=== PATIENT | female | born 1950 | race Caucasian/White ===

== ENCOUNTER 2020-03-25 11:37 | Inpatient (IN) | payer OTHER ==
[~2020-03-25] VITALS: Ht 152.4 cm; Wt 62.3 kg
--- NOTE | ~2020-03-25 | EKG ---
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
[2020-03-25 11:37] VITALS: BP 112/76
[2020-03-25 11:52] LABS: ABSOLUTE NEUTROPHILS 3.6 thou/uL (1.4-8.2); EOSINOPHILS 1.2 % (0.0-3.0); HEMATOCRIT 38.6 % (37.0-47.0); HEMOGLOBIN 13.2 gm/dL (12.0-15.0); LYMPHOCYTES 28.3 % (24.0-44.0); MCH 32.3 pg (26.0-34.0); MCHC 34.1 g/dL (28.0-37.0); MCV 94.8 fL (80.0-100.0); MONOCYTES 8.8 % (1.0-8.0); PLATELET COUNT 256 thou/uL (150-400); POLYS 60.7 % (36.0-66.0); RBC 4.08 mil/uL (4.20-5.00); RDW 13.6 % (10.5-14.5); WBC 5.9 thou/uL (4.0-11.0)
[2020-03-25 12:04] LABS: ANION GAP 11 mmol/L (7-16); BUN 16 mg/dL (7-18); CALCIUM 9.7 mg/dL (8.5-10.1); CHLORIDE 100 mmol/L (98-107); CO2 24 mmol/L (21-32); CREATININE 0.8 mg/dL (0.6-1.0); GLUCOSE 95 mg/dL (74-106); SODIUM 135 mmol/L (136-145)
[2020-03-25 12:14] LABS: ALBUMIN 4.1 g/dL (3.4-5.0); SGOT 19 U/L (15-37); SGPT 23 U/L (30-65); TOTAL BILIRUBIN 0.5 mg/dL (0.2-1.0); TROPONIN-I <0.06 ng/mL (<0.06)
[2020-03-25 15:58] VITALS: BP 130/72
[2020-03-25] MEDS ORDERED: ADVAIR 250-501 EACH INH (16:08)
[2020-03-25] MEDS ORDERED: FEOSOL325 M1 PO (16:09)
[2020-03-25] MEDS ORDERED: LIPITOR 20 MG T20 M1 PO (16:09)
[2020-03-25] MEDS ORDERED: NORVASC5 M1 PO (16:09)
[2020-03-25] MEDS ORDERED: LEVO-T100 MCG PO (16:09)
[2020-03-25] MEDS ORDERED: PAROXETINE HCL10 MG PO (16:10)
[2020-03-25] MEDS ORDERED: VENTOLIN HFA 1818 GM INH (16:10)
[2020-03-25] MEDS ORDERED: MYRBETRIQ50 MG PO (16:10)
[2020-03-25] MEDS ORDERED: VIBERZI100 MG PO (16:10)
[2020-03-25] MEDS ORDERED: OXYBUTYNIN 5 MG5 M2 PO (16:10)
[2020-03-25 16:22] VITALS: BP 119/83
[2020-03-25 17:00] VITALS: BP 132/73
--- NOTE | 2020-03-25 17:15 | NUR ---
ASSUMED CARE OF PT FROM ED AT 1700. A&0X4, AMB STEADY, IS NOT IMPULSIVE. C/O OF SAME PAIN SHE'S HAD FOR A WEEK, CHEST PAIN INTERMITTENTLY AND ABD PAIN. HERNIA FOUND W/DIAGNOSTICS. DAUGHTER AT BEDSIDE. SEE SEPARATE INTERVENTIONS FOR ASSESSMENTS. CARDIAC MONITORED. COMPUTER NOT WORKING IN THE ROOM AND ONE ON WHEELS NOWHERE TO BE FOUND AT THIS TIME. WILL CONTINUE TO MONITOR. HAS MS AND HYDROCODONE FOR PAIN.
[2020-03-25 18:54] VITALS: BP 108/64
[2020-03-25 20:00] VITALS: BP 108/64
[2020-03-26 05:12] LABS: CALCIUM 8.6 mg/dL (8.5-10.1); CREATININE 0.7 mg/dL (0.6-1.0); POTASSIUM 4.2 mmol/L (3.5-5.1)
[2020-03-26 05:13] LABS: HEMATOCRIT 36.7 % (37.0-47.0); HEMOGLOBIN 12.1 gm/dL (12.0-15.0); MCH 31.8 pg (26.0-34.0); MCHC 32.9 g/dL (28.0-37.0); MCV 96.6 fL (80.0-100.0); RBC 3.8 mil/uL (4.20-5.00); RDW 13.7 % (10.5-14.5); WBC 3.4 thou/uL (4.0-11.0)
[2020-03-26 05:30] VITALS: BP 111/58
--- NOTE | 2020-03-26 06:25 | NUR ---
PATIENTS CARES WERE ASSUMED AT SHIFT CHANGE. PATIENT WAS ASSESSED AND MEDS WERE PASSED. PATIENT DENIES AND DISCOMFORT THIS SHIFT. HOUR ROUNDS WERE DONE AND THE BED IS IN A LOW AND LOCKED POSITION.
[2020-03-26 08:00] VITALS: BP 108/70
[2020-03-26 12:00] VITALS: BP 107/64
--- NOTE | 2020-03-26 14:55 | NUR ---
AAOX4. CALM, PLEASANT. DR. ESPARZA HERE, SCHEDULES CARDIAC CATH FOR FRIDAY. SURGERY TO REPAIR AN INCARCERATED HIATAL HERNIA FRIDAY. EVENTS OF CARDIAC CATH EXPLAINED TO PATIENT AND ADULT DTR. MEDICATED FOR NON-CARDIAC CHEST PAIN WITH GOOD RESULT. SR WITH LEFT BBB PER TELE. WILL CONTINUE TO FOLLOW CLOSELY.
[2020-03-26 16:00] VITALS: BP 118/68
[2020-03-26 18:45] VITALS: BP 121/79
[2020-03-26 19:11] VITALS: BP 121/79
[2020-03-27] VITALS (14 sets, daily range): BP systolic 102–134; BP diastolic 45–77
[2020-03-27 05:23] LABS: ALBUMIN 3.4 g/dL (3.4-5.0); CALCIUM 8.6 mg/dL (8.5-10.1); CREATININE 0.7 mg/dL (0.6-1.0); PHOSPHORUS 4.1 mg/dL (2.5-4.9); POTASSIUM 3.9 mmol/L (3.5-5.1)
[2020-03-27 05:33] LABS: HEMATOCRIT 37.3 % (37.0-47.0); HEMOGLOBIN 12.5 gm/dL (12.0-15.0); MCH 32.2 pg (26.0-34.0); MCHC 33.4 g/dL (28.0-37.0); MCV 96.2 fL (80.0-100.0); RBC 3.88 mil/uL (4.20-5.00); RDW 13.7 % (10.5-14.5); WBC 3.6 thou/uL (4.0-11.0)
--- NOTE | 2020-03-27 07:26 | NUR ---
patients cares were assumed at shift change. patient was assessed and meds were passed. patient has been npo since midnight due to a heart cath this morning. patient is up ad bjorn in her room and independent. hourly rounds were done. the bed is in a low and locked position.
--- NOTE | 2020-03-27 08:10 | EKG ---
[facility] [place] [address] ELECTROCARDIOGRAM REPORT Name: RUI OJEDA Room #: 214-P ADM IN M.R.#: [id number] Admission: 03/25/20 Attend Phys: Petros Dow MD Discharge: Date of : 48 Report #: [id number] THIS REPORT FOR: cc: Physician not on staff Physician not on staff Rigoberto Orr MD [facility] ~ THIS REPORT FOR: //name// 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 /EPI
--- NOTE | 2020-03-27 08:14 | HC ---
[facility] [address] CONSULTATION Name: RUI OJEDA Room #: 214-P [facility] IN ..#: [id number] Admission: 03/25/20 Attend Phys: Petros Dow MD Discharge: Date of : 48 Report #: [id number] THIS REPORT FOR: cc: Physician not on staff Physician not on staff Guevara Lauren MD ~ CC: Petros YBARRA Physician staff DATE OF SERVICE: 03/26/2020 CARDIOLOGY CONSULTATION INDICATION: Chest pain. HISTORY OF PRESENT ILLNESS: This is a pleasant 69-year-old female with a history of hypertension, hyperlipidemia and hypothyroidism, presenting with chest pain and shortness of breath. The patient describes two different types of chest discomfort. When she walks, her dog, she develops tightness in the substernal area associated with shortness of breath. She has to rest for her symptoms to resolve. This also occurs when she walks from the parking lot to the store when she goes shopping. It seems that she has another type of discomfort in the chest area when she lies supine or after meals. She reports that these 2 types of pain are not the same. There is no history of fever, chills or diarrhea. PAST MEDICAL HISTORY: Hypertension, hypercholesterolemia, breast cancer. MEDICATIONS: At home include Advair, amlodipine 5 mg, Lipitor 20 mg, iron tablets, levothyroxine, paroxetine. ALLERGIES: None. SOCIAL HISTORY: Denies tobacco use. FAMILY HISTORY: Negative for premature CAD. REVIEW OF SYSTEMS: A full 10-point review of systems performed. Only the pertinent positives and negatives are described in the HPI. PHYSICAL EXAMINATION: VITAL SIGNS: Blood pressure is 120/70, heart rate is 65 beats per minute. GENERAL APPEARANCE: This is an elderly-appearing female, in no acute distress. HEENT: Normocephalic, atraumatic. Oral mucosa moist. NECK: Supple. [facility] [address] [place] [address] CONSULTATION Name: RUI OJEDA Teresa Room #: 214-P [facility] IN [facility]#: [id number] Admission: 03/25/20 Attend Phys: Petros Dow MD Discharge: Date of : 48 Report #: [id number] LUNGS: Clear to auscultation. CARDIAC: Regular rate and rhythm, S1, S2 positive. ABDOMEN: Soft, nontender. EXTREMITIES: Trace edema, no cyanosis. ECG reveals sinus rhythm with a left bundle-branch block. LABORATORY VALUES: Serial troponin levels are negative. White count 3.4, hemoglobin is 12.1, creatinine is 0.7. ASSESSMENT AND PLAN: 1. Unstable angina, she reports developing substernal tightness with shortness of breath with walking. ECG reveals a left bundle-branch block. We discussed the pros and cons of noninvasive stress testing versus cardiac catheterization. Her presentation is concerning for unstable angina. The risks, benefits and alternatives of cardiac catheterization was explained to the patient. She voices understanding and wishes to proceed. 2. GI/large hiatal hernia. The patient reports different type of discomfort, occurring after meals. May require surgery at a later date. 3. Hypertension, stable blood pressure, continue on amlodipine. 4. Hypercholesterolemia, continue with statin therapy. <ELECTRONICALLY SIGNED> By: Guevara Lauren MD 03/27/20 0814 1028 1049 Guevara Lauren MD /nt
--- NOTE | 2020-03-27 14:51 | CATHLAB ---
[facility] [place] [address] INVASIVE PROCEDURE REPORT Name: RUI OJEDA Room #: 214-P ADM IN .R.#: [id number] Admission: 03/25/20 Attend Phys: Petros Dow MD Discharge: Date of : 48 Report #: [id number] THIS REPORT FOR: cc: Physician not on staff Physician not on staff Guevara Lauren MD ~ APPROVED REPORT Study performed: 03/27/2020 08:14:41 Patient Details Patient Status: In-Patient Room #: The patient is a 69 year-old female Event Personnel Guevara Lauren Application Development Liaison, Nova Adams RN RN, Francheska Sanchez RTR, RACHELLE Scrub, Angie Mota RTR Scrub, Alisa Felix Monitor Procedures Performed Art Access - R femoral artery* Left Heart Cath w/or w/o Coronaries 2423317 [facility] Place w/wo Plasty Single LAD 840600 Hemostasis w/ Mynx 48481 Initial Mod Sed Same Phys/QHP Gr5y 251612 83101 Mod Sed Same Phys/QHP Ea 211424 Indication Dyspnea, Unstable angina , Chest pain Risk Factors Hypercholesterolemia, Hypertension Procedure Narrative The Right Groin^ was infiltrated with 1% Lidocaine subcutaneous anesthesia. A PINNACLE 4FR Sheath #[id number] sheath was inserted into the RFA 4F^. Coronary angiography was performed using coronary diagnostic catheters. The right coronary system was accessed and visualized with a JR4 catheter. The left coronary system was accessed and visualized with a JL4 catheter. The left ventricle was accessed and visualized with a ANGLE PIG catheter. There was no hematoma. Intraoperative Conscious Sedation Sedation start time: 844 Case end Time: 999 [facility] [address] [place] [address] INVASIVE PROCEDURE REPORT Name: RUI OJEDA Teresa Room #: 214-P [facility] [place] [facility]#: [id number] Admission: 03/25/20 Attend Phys: Petros Dow MD Discharge: Date of : 46 Report #: [id number] Fentanyl 50 mcg Versed 1 mg Fluoro Time: 11.15 minutes Dose: DAP 5504.00 cGycm2 811 mGy Contrast Type and Amount: Omnipaque 185 ml Coronary Angiography The patient's coronary anatomy is right dominant. Diagnostic Cath Left Main The left main artery is a large-caliber vessel, appears angiographically normal. LAD The LAD is a moderate-sized caliber vessel, tapers down to a small size caliber in the distal segment. There are calcifications throughout the LAD. Within the proximal segment, there is a severe stenosis, 80%. Within the distal segment, there is a severe stenosis, 70%. Recommend medical therapy. Diagonal 1 This is a patent vessel, with no flow-limiting lesions. Diagonal 2 This is a patent vessel, with no flow-limiting lesions. Circumflex The left circumflex artery is a moderate-sized caliber vessel, with a mild stenosis proximally, 30%. OM1 This is a moderate-sized caliber vessel, supplies multiple branches as it travels down the lateral wall. Within the midsegment, there is a mild stenosis of 30%. Right Coronary The RCA has mild disease in the midsegment, 30%. R PDA This is a patent vessel, with no flow-limiting lesions. RPLV This is a small caliber vessel, with no flow-limiting lesions. Left Ventriculography The left ventricle is normal in size with Low normal contractility. The left ventricular ejection fraction is estimated to be 50-55%. Hemodynamics The aortic pressure is 121/67 mmHg with a mean of 88 mmHg. The left ventricular pressure is 130/10 mmHg with a mean of mmHg. The left ventricular end diastolic pressure is 17 mmHg. PCI Technique Lesion Percutaneous coronary intervention was performed on the Proximal left anterior descending artery segment. The lesion stenosis prior to intervention was 80% with ANJELICA 3 flow. A VISTA 6FR XB 3.5 #[id number] [place] [address] INVASIVE PROCEDURE REPORT Name: URI OJEDA Room #: 214-P [facility] [place] ..#: [id number] Admission: 03/25/20 Attend Phys: Petros Dow MD Discharge: Date of : 48 Report #: [id number] Guide Catheter was used to engage the LAD ostium. A Luge Wire .014 x 182CM #[id number] Interventional Guidewire was used to cross the lesion. BALLOON DILATION A Balloon catheter Euphora RX 2.25 x 15 #[id number] was inserted and inflated up to 12.00atm for 36seconds. STENT DEPLOYMENT A stent RESOLUTE SARAH RX 2.5 X 18 #[id number] was inserted and inflated up to 14.00atm for 23seconds. POST STENT DEPLOYMENT BALLOON DILATION A Balloon catheter Euphora NC RX 3.0 x 12 #[id number] was inserted and inflated up to 14.00atm for 17seconds. Additional Inflation: 16atm for 20seconds. Final angiography reveals 0 % stenosis with ANJELICA 3 flow. Conclusion 1. Successful insertion of a drug-eluting stent into the proximal LAD segment. 2. There is a severe stenosis in the distal LAD, a small caliber vessel and medical therapy is recommended. 3. There is mild disease in OM1 and RCA. 4. Low normal LV systolic function. 5. Recommend dual antiplatelet therapy for 3 months. <ELECTRONICALLY SIGNED> By: Guevara Lauren MD 03/27/20 145 50 50 Guevara Lauren MD /INF
--- NOTE | 2020-03-27 16:38 | NUR ---
ASSUMMED PT CARE AT APPROXIMATELY 0700. PT A&O X4. ASSESSMENT CHARTED. FALL PRECAUTIONS IN PLACE. PT DENIES HAVING CHEST PAIN. PT DENIES HAVING SOB. PT DENIES HAVING ACUTE PAIN. PT HAD CATH PROCEDURE. VITAL SIGNS STABLE. BED REST COMPLETE. PT AMBULATES STEADY/INDPENDENT. PT COMFORTABLE. PT DENIES HAVING FURTHER CONCERNS. R GROIN C/D/I. NO HEMATOMA.
[2020-03-28 05:00] VITALS: BP 123/72
--- NOTE | 2020-03-28 05:53 | NUR ---
PT S/P CARDIAC CATH, ALERT AND ORIENTED. DENIES PAIN. VITALS STABLE. RIGHT GROIN SITE C/D/I. SR Wt BBB ON THE MONITOR. WILL CONTINUE TO MONITOR AND FOLLOW POC.
[2020-03-28 06:08] LABS: HEMATOCRIT 36.3 % (37.0-47.0); MCH 31.8 pg (26.0-34.0); MCHC 33.1 g/dL (28.0-37.0); MCV 96.2 fL (80.0-100.0); RBC 3.78 mil/uL (4.20-5.00); RDW 13.5 % (10.5-14.5); WBC 5.3 thou/uL (4.0-11.0)
[2020-03-28 06:24] LABS: ALBUMIN 3.5 g/dL (3.4-5.0); CALCIUM 8.2 mg/dL (8.5-10.1); CREATININE 0.7 mg/dL (0.6-1.0); POTASSIUM 4.1 mmol/L (3.5-5.1); TOTAL BILIRUBIN 0.4 mg/dL (0.2-1.0); TOTAL PROTEIN 6.9 g/dL (6.4-8.2)
[2020-03-28] MEDS ORDERED: ASPIR 8181 MG PO (07:33)
[2020-03-28] MEDS ORDERED: EFFIENT10 MG PO (07:33)
[2020-03-28 08:06] VITALS: BP 122/76
--- NOTE | 2020-03-28 08:54 | EKG ---
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
[2020-03-28 10:11] VITALS: BP 122/76
--- NOTE | 2020-03-28 10:46 | NUR ---
ASSUMED CARE PT SHIFT CHANGE. ASSESSMENT CHARTED.MEDS GIVEN PER NOV. PT ALERT AND ORIENTED. VSS. DENIES PAIN. GROIN SITE CDI. NO HEMATOMA. DC ORDERS IMPLEMENTED. DISCUSSED WITH PT AND DTR. COMMUNICATES UNDERSTANDING. CARDIAC REHAB NURSE CURRENTLY TALKING WITH PT. ALL BELONGINGS GATHERED FOR PT. IV REMOVED. TELE REMOVED. PT WILL LEAVE WITH ALL BELONGINGS ACCOMPANIED BY DTR.
== END 2020-03-28 11:01 | disposition home or self-care (01) | DRG 248 ==
LOC: ER 11:37 → 2N 15:22 → EROBS 15:22 → 2N 16:18
PROVIDERS: Emergency Medicine; Internal Medicine Cardiovascular Disease; ADMIT Hospitalist; ATTEND Hospitalist
DX: I20.0 Unstable angina (principal); J96.01 Acute respiratory failure with hypoxia; K44.0 Diaphragmatic hernia with obstruction, without gangrene; I10 Essential (primary) hypertension; E78.5 Hyperlipidemia, unspecified; E78.00 Pure hypercholesterolemia, unspecified; J45.909 Unspecified asthma, uncomplicated; E03.9 Hypothyroidism, unspecified; Z79.82 Long term (current) use of aspirin; Z79.899 Other long term (current) drug therapy; Z03.818 Encounter for observation for suspected exposure to other biological agents ruled out
CPT/HCPCS: 10081

== ENCOUNTER → 2020-04-07 | Outpatient (CLI) | payer OTHER ==
[~2020-04-07] MED LIST: ADVAIR 250-501 EACH INH; ASPIR 8181 MG PO; EFFIENT10 MG PO; FEOSOL325 M1 PO; LEVO-T100 MCG PO; LIPITOR 20 MG T20 M1 PO; MYRBETRIQ50 MG PO; NORVASC5 M1 PO; OXYBUTYNIN 5 MG5 M2 PO; PAROXETINE HCL10 MG PO; VENTOLIN HFA 1818 GM INH; VIBERZI100 MG PO
== END ==
LOC: SJCVC 11:10
PROVIDERS: ATTEND Internal Medicine Cardiovascular Disease
DX: I44.7 Left bundle-branch block, unspecified (principal); I25.10 Atherosclerotic heart disease of native coronary artery without angina pectoris; I10 Essential (primary) hypertension; E78.00 Pure hypercholesterolemia, unspecified; E03.9 Hypothyroidism, unspecified; K21.9 Gastro-esophageal reflux disease without esophagitis; Z79.899 Other long term (current) drug therapy

== ENCOUNTER → 2020-10-04 | Outpatient (CLI) | payer OTHER | LOC: SJCVCIMAG 10:29 | PROVIDERS: ATTEND Internal Medicine Cardiovascular Disease | DX: I08.3 Combined rheumatic disorders of mitral, aortic and tricuspid valves (principal); I25.10 Atherosclerotic heart disease of native coronary artery without angina pectoris; R94.31 Abnormal electrocardiogram [ECG] [EKG]; I44.7 Left bundle-branch block, unspecified; I10 Essential (primary) hypertension; E78.00 Pure hypercholesterolemia, unspecified; K21.9 Gastro-esophageal reflux disease without esophagitis; K44.9 Diaphragmatic hernia without obstruction or gangrene; J45.909 Unspecified asthma, uncomplicated; E03.9 Hypothyroidism, unspecified; E55.9 Vitamin D deficiency, unspecified; Z95.5 Presence of coronary angioplasty implant and graft; Z90.12 Acquired absence of left breast and nipple; Z79.899 Other long term (current) drug therapy ==

== ENCOUNTER → 2020-11-20 | Outpatient (CLI) | payer OTHER ==
[~2020-11-20] MED LIST changes: +ASA81BEC PO; +FAMOTIDINE 20 M20 MG PO; +LEVOXYL150 MCG PO; +PROBIOTIC1 EAC2 PO; +STOOL SOFTENER100 MG PO
== END ==
LOC: LAB 10:19
PROVIDERS: ATTEND Surgery
DX: Z01.812 Encounter for preprocedural laboratory examination (principal); Z20.822 Contact with and (suspected) exposure to COVID-19

== ENCOUNTER 2020-11-23 06:21 | Observation (INO) | payer OTHER ==
[~2020-11-23] VITALS: Ht 154.9 cm; Wt 59.4 kg
[2020-11-23] VITALS (10 sets, daily range): BP systolic 129–145; BP diastolic 66–98
--- NOTE | ~2020-11-23 | O ---
[facility] [place] [place] [address] OPERATIVE REPORT Name: RUI OJEDA Room #: 442-[facility] Brionna Avila#: [id number] Admission: 11/23/20 Attend Phys: Humberto Toscano, Discharge: Date of : 46 Report #: [id number] THIS REPORT FOR: cc: Physician not on staff Physician not on staff Humberto Toscano MD ~ DATE OF SERVICE: 11/23/2020 PREOPERATIVE DIAGNOSIS: Paraesophageal hernia. POSTOPERATIVE DIAGNOSIS: Paraesophageal hernia. OPERATION: Laparoscopic repair of paraesophageal hernia with mesh implantation with partial fundoplication. SURGEON: Humberto Toscano MD ANESTHESIA: General. ESTIMATED BLOOD LOSS: Minimal. SPECIMEN: None. DESCRIPTION OF PROCEDURE: After informed consent was obtained, the patient was brought to the operating room and placed supine. SCDs were placed and working, preoperative antibiotics were administered, general anesthesia was induced. The abdomen was prepped and draped in the usual sterile fashion. A Veress needle was then inserted in the left upper quadrant. Pneumoperitoneum was established. A left periumbilical 5 mm trocar was placed under direct vision. I then placed a left sided 8 mm trocar and 2 right upper quadrant 5 mm trocars. A self-retaining Emy retractor was placed in the epigastrium. The retractor was then used to retract the liver anteriorly and superiorly. The patient was placed in the reverse Trendelenburg position. The pars flaccida was incised with cautery. LigaSure dissection was then carried up to the right feroz. She had incarcerated stomach and this was all manually reduced. I then incised the phrenoesophageal ligament. This allowed me to grasp the hernia sac and then began dissecting it down. The hernia sac was dissected fully circumferentially around the distal esophagus. The hernia sac having been reduced, I then placed a Christina drain around the distal esophagus. The Kemp applied retraction superiorly. The stomach was then grasped and retracted to the right side. The short gastric vessels were then taken down using the LigaSure device. There was excellent [facility] [address] [place] [address] OPERATIVE REPORT Name: RUI OJEDA Room #: 442-P [facility] Brionna Avila#: [id number] Admission: 11/23/20 Attend Phys: Humberto Toscano, Discharge: Date of : 46 Report #: [id number] hemostasis. I then performed a cruroplasty. This was done with a running 2-0 V-Loc suture. I then cut out a 1 cm pledget of Phasix mesh. These were placed on each side of the crura and a single 2-0 Ethibond suture was placed to reinforce the diaphragmatic repair. The cruroplasty having been performed, I then performed a partial fundoplication. This was a Mao style fundoplication. The fundus of the stomach was grasped. It was sutured to the right feroz using 2-0 Ethibond sutures. Approximately three sutures were placed. This was done by taking the stomach and then suturing it to the right side of the esophagus. The fundoplication having been performed, I then placed 2 sutures from the fundus to the right feroz. The liver was then placed back into its anatomic position. The ports were removed under direct vision. The skin was then closed with 4-0 Monocryl. Incisions were dressed with Steri-Strips. COMPLICATIONS: None. DISPOSITION: The patient was taken to recovery in satisfactory condition. By: 1633 1648 Humberto Toscano MD /nt
[2020-11-23 07:11] LABS: HEMATOCRIT 36.4 % (37.0-47.0); HEMOGLOBIN 12.1 gm/dL (12.0-15.0); MCH 31.3 pg (26.0-34.0); MCHC 33.2 g/dL (28.0-37.0); MCV 94.3 fL (80.0-100.0); RBC 3.86 mil/uL (4.20-5.00); WBC 4.7 thou/uL (4.0-11.0)
[2020-11-23 07:16] LABS: CALCIUM 8.6 mg/dL (8.5-10.1); CREATININE 0.8 mg/dL (0.6-1.0); POTASSIUM 3.5 mmol/L (3.5-5.1)
--- NOTE | 2020-11-23 18:30 | NUR ---
A/O, calm and cooperative, coughed when arrived at the floor, coughing calmed down after about 2 hours. no BM yet, good urine output.
--- NOTE | 2020-11-24 03:44 | NUR ---
ASSUMED PT CARE AT 1900.PT C/O NAUSEA AND PAIN,MEDS GIVEN,EFFECTIVE.PT UP WITH GB AND WALKER WALKED ONE LAP ROUND THE UNIT BEFORE SHE RETIRED FOR THE NIGHT.6 LAP SITES NOTED,COVERED WIT STERI STRIPS,C/D/I.PT ABLE TO MAKE HER NEEDS KNOWN.CALL LIGHT WITHIN REACH.
[2020-11-24 08:00] VITALS: BP 126/79
--- NOTE | 2020-11-24 10:05 | NUR ---
CM COMPLETED ASSESSMENT TO DISCUSS D/C PLANNING AND HOME SITUATION. PT LIVES HOME ALONE. PT IS ACTIVE AND INDEPENDENT W/CARES. PT DRIVES A VEHICLE. DENIES HX W/HOME HEALTH OR SNF. PT HAS 0 DMES. PT PCP IS ASHLEY HARTMAN.)
[2020-11-24] MEDS ORDERED: NORCO5 PO (14:30)
[2020-11-24 14:52] VITALS: BP 126/79
--- NOTE | 2020-11-24 15:40 | NUR ---
Assumed pt care at 7am.Pt in bed very anxious about dc home today.Assessment completed.vss.Pt c/o surgical site pain and requested for pain med.Vicodin given as ordered and well tolerated.Dr Toscano here, and dc order noted. Dc summary compile and reviewed with pt.Saline lock dc.At 1510,pt dc home in accompanied by dtr.
== END 2020-11-24 15:22 | disposition home or self-care (01) ==
LOC: OR 06:21 → TBA 06:28 → OR 09:59 → 4S 11:35 → OR 12:20 → 4S 11-24 15:22
PROVIDERS: Anesthesiology; ADMIT Surgery; ATTEND Surgery
DX: K44.9 Diaphragmatic hernia without obstruction or gangrene (principal); I25.10 Atherosclerotic heart disease of native coronary artery without angina pectoris; I10 Essential (primary) hypertension; E78.00 Pure hypercholesterolemia, unspecified; K21.9 Gastro-esophageal reflux disease without esophagitis; J45.909 Unspecified asthma, uncomplicated; E03.9 Hypothyroidism, unspecified; Z79.899 Other long term (current) drug therapy
CPT/HCPCS: 50010; 50101; 50386; 50555; 51489; 52265; 52266; 53307; 53310; 56462; 56525; 56526; 56527; 57092; 57155; 58574; 58586; 62110; 62900; 70005

== ENCOUNTER 2020-12-01 19:17 | Inpatient (IN) | payer OTHER ==
[~2020-12-01] VITALS: Ht 154.9 cm; Wt 56.7 kg
[~2020-12-01 19:17] MED LIST changes: +NORCO5 PO
[2020-12-01 19:19] VITALS: BP 140/77
[2020-12-01 19:46] LABS: ABSOLUTE NEUTROPHILS 4.6 thou/uL (1.4-8.2); BASOPHILS 1.3 % (0.0-2.0); EOSINOPHILS 0.8 % (0.0-3.0); HEMATOCRIT 38.7 % (37.0-47.0); HEMOGLOBIN 12.8 gm/dL (12.0-15.0); LYMPHOCYTES 22.6 % (24.0-44.0); MCH 31.6 pg (26.0-34.0); MCHC 33.2 g/dL (28.0-37.0); MCV 95.1 fL (80.0-100.0); MONOCYTES 8.9 % (1.0-8.0); PLATELET COUNT 316 thou/uL (150-400); POLYS 66.4 % (36.0-66.0); RBC 4.07 mil/uL (4.20-5.00); RDW 13.9 % (10.5-14.5); WBC 6.8 thou/uL (4.0-11.0)
[2020-12-01 20:00] LABS: ANION GAP 16 mmol/L (7-16); BUN 27 mg/dL (7-18); CALCIUM 9.5 mg/dL (8.5-10.1); CHLORIDE 102 mmol/L (98-107); CO2 22 mmol/L (21-32); GLUCOSE 98 mg/dL (74-106); POTASSIUM 3.6 mmol/L (3.5-5.1); SODIUM 140 mmol/L (136-145)
[2020-12-01 20:10] LABS: ALBUMIN 4.2 g/dL (3.4-5.0); SGOT 15 U/L (15-37); SGPT 20 U/L (30-65); TOTAL BILIRUBIN 0.6 mg/dL (0.2-1.0); TOTAL PROTEIN 8.4 g/dL (6.4-8.2); TROPONIN-I <0.06 ng/mL (<0.06)
[2020-12-02 00:50] VITALS: BP 120/68
[2020-12-02 01:06] VITALS: BP 99/60
[2020-12-02 02:00] VITALS: BP 123/63
--- NOTE | 2020-12-02 06:23 | NUR ---
0130 RECIEVED PER WHEELCHAIR FROM ER. NPO, UP AD RHONDA WITH STEADY GAIT. DENIES PRESENT COMPLAINTS STATING PAIN MED IN ER HELPED. MOUTH SWABS TO HELP MOISTIN MOUTH. 0600 SLEPT MOST OF SHIFT. DENIES PRESENT COMPLAINTS. AWAITING DR FOR PLAN. WORKING ON GOALS AND PLAN OF CARE FOR NOC. CONTINUE TO ASSES CLOSELY.
--- NOTE | 2020-12-02 15:20 | NUR ---
PT ASSESSED AT START OF SHIFT. PT NPO THIS AM. NO C/O NAUSEA AT THE TIME. DR. SALDAÑA IN ON CONSULT TO SEE PT. CLEAR LIQUIDS ORDERED AND PT TRIED TAKING THEM AND WAS UNABLE AND VOMITED RIGHT BACK AFTER TRYING TO SWALLOW. STATES PAIN/DISCOMFORT AT MID STERNAL AREA WHERE FOOD BOLUS SHOWING ON CT SCAN. SIN SALDAÑA AND WANDER NOTIFIED. DR. VIRAMONTES CALLING TO DISCUSS W/ DR. SALDAÑA AND WILL ADVISE AFTER. PT RESTING.
[2020-12-02 18:05] VITALS: BP 131/73
[2020-12-02 21:33] VITALS: BP 118/67
--- NOTE | 2020-12-03 02:48 | NUR ---
ASSESSED AT START OF SHIFT. PT TRANSFRED FROM 4WEST. A&OX4. DENIES PAIN. C/O NAUSEA. DR VIRAMONTES NOTIFIED. ZOFRAN GIVEN. IV INTACT AND FLUIDS INFUSING. PT UP ADLIB TO THE BATHROOM. CLEAR LIQUIDS BUT MAINTAINING NPO DIET DUE TO NAUSEA AND HEARTBURN WILL CONT TO MONITOR.
--- NOTE | 2020-12-03 09:13 | NUR ---
PT ASSESSED THIS AM. STATES SLEPT FAIRLY WELL. NPO FOR EGD THIS AM. UP AMBULATING AD RHONDA. DENIES NAUSEA -STILL HAVING SM MILD DISCOMFORT IN MID EPIGASTRIC REGION WHERE FOOD BOLUS IS LOCATED.
[2020-12-03 10:00] VITALS: BP 107/63
--- NOTE | 2020-12-03 11:24 | EKG ---
[place] [address] [facility] [place] [address] ELECTROCARDIOGRAM REPORT Name: ALVARO OJEDATANYA Moore Room #: 440-P 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
--- NOTE | 2020-12-03 11:24 | EKG ---
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
--- NOTE | 2020-12-03 17:26 | NUR ---
PT HAD EGD W/O INCIDENT THIS AM. PLAN ON BARIUM SWALLOW IN AM TO CHECK ESPHOGEAL MOTILITY. TAKING CLEAR LIQUIDS AND SWALLOWING W/O DIFFICULTY. IV FLUIDS INFUSING. AMBULATING HALLS.
[2020-12-03 19:40] VITALS: BP 103/75
--- NOTE | 2020-12-03 21:26 | NUR ---
ASSESSED AT START OF SHIFT. PT A&OX4. UP AD RHONDA IN THE HALLWAYS. DENIES PAIN, N/V. PT HI CLEAR LIQUID. BARIUM STUDY TOMORROW. PT NPO AT MIDNIGHT. IV INTACT AND FLUIDS INFUSING. WILL CONT TO MONITOR.
[2020-12-04 08:10] VITALS: BP 122/74
--- NOTE | 2020-12-04 13:18 | NUR ---
ASSESSMENT: CM REVIEWED CHART AND SPOKE WITH PATIENT. PT IS ALERT AND ORIENTED X4. PT REPORTS THAT SHE LIVES ALONE IN AN APT. PT REPORTS SHE HAS NO STEPS TO ENTER OR ONCE INSIDE. PT REPORTS THAT HER PCP IS DR. ASHLEY YBARRA ([facility]). PT REPORTS SHE HAS NO HX OF HH OR BEING TO A SNF. CM DISCUSSED ROLE. PT WILL HAVE NO NEEDS FROM CM AT DISCHARGE AND IS DISCHARGING HOME TODAY. PT REPORTS SHE HAS TRANSPROTATION HOME. CASE CLOSED.
[2020-12-04 13:25] VITALS: BP 122/74
--- NOTE | 2020-12-04 13:49 | NUR ---
ASSUMED PATIENT CARE AT 0700. A/O X4. TOLERATED BARIUM SWALLOW. WILL FOLLOW UP WITH GI. DC TO HOME NOW.
--- NOTE | 2020-12-07 11:31 | PATH ---
[facility] [place] [address] PATHOLOGY RPT PROCEDURE Name: RUSTYALVAROTESHA J Room #: 440-P DIS IN M.R.#: [id number] Admission: 12/01/20 Date of : 46 Discharge: 12/04/20 Report #: [id number] Path Case #: [id number] [facility] Accession Number: [id number] . 01 Material submitted: . esophagus - DISTAL ESOPHAGUS BIOPSY. Modifiers: distal . 01 Clinical history: . R/O EOSINOPHILIC ESOPHAGITIS . 02 Diagnosis: Squamous mucosa, distal esophagus to rule out eosinophilic esophagitis, endoscopic biopsy: - Mild active esophagitis. - No increase in intraepithelial eosinophils. - Negative for intestinal metaplasia or dysplasia. (IUV:plater helper; 12/05/2020) MBR 12/05/2020 [facility] Local . 02 Electronically signed: . Ana M Biggs MD, Pathologist NPI- [id number] . 01 Gross description: . The specimen is received in formalin, labeled "Tesha Ojeda, biopsy of distal esophagus". Received are four segments of pale patton tissue ranging in size from 0.2-0.5 cm in maximum dimensions. The specimen is submitted entirely in cassette A1. (CAA; 12/04/2020) QAC/QAC 12/04/2020 1307 Local . 02 Pathologist provided ICD-10: K20.90 . 02 CPT . 472068 Specimen Comment: A courtesy copy of this report has been sent to [phone], [phone] Specimen Comment: [id number] Specimen Comment: Report sent to / DR VIRAMONTES Specimen Comment: A duplicate report has been generated due to demographic updates. Performed at: 01 [facility] [address] [id number] MD Gabriel Walter MD Phone: [phone] Performed at: [address] [address] PATHOLOGY RPT PROCEDURE Name: TESHA OJEDA Room #: 440-P DIS IN M.R.#: [id number] Admission: 12/01/20 Date of : 46 Discharge: 12/04/20 Report #: [id number] Path Case #: [id number] [address] [id number] MD Ana M Biggs MD Phone: [phone]
== END 2020-12-04 13:52 | disposition home or self-care (01) | DRG 392 ==
LOC: ER 19:17 → EROBS 23:16 → 4S 23:16 → 4W 12-02 01:47 → 4S 12-02 20:01
PROVIDERS: Emergency Medicine; ADMIT Surgery; ATTEND Surgery
PROC: 0DC38ZZ Extirpation of Matter from Lower Esophagus, Via Natural or Artificial Opening Endoscopic (ICD-10-PCS; principal; 2020-12-03)
PROC: 0DB38ZX Excision of Lower Esophagus, Via Natural or Artificial Opening Endoscopic, Diagnostic (ICD-10-PCS; principal; 2020-12-03)
DX: K22.2 Esophageal obstruction (principal); T18.120A Food in esophagus causing compression of trachea, initial encounter; R13.19 Other dysphagia; I10 Essential (primary) hypertension; E78.00 Pure hypercholesterolemia, unspecified; E03.9 Hypothyroidism, unspecified; J45.909 Unspecified asthma, uncomplicated; E78.5 Hyperlipidemia, unspecified; Z20.822 Contact with and (suspected) exposure to COVID-19; X58.XXXA Exposure to other specified factors, initial encounter; Z85.3 Personal history of malignant neoplasm of breast; Z90.12 Acquired absence of left breast and nipple; Z92.3 Personal history of irradiation; Z90.710 Acquired absence of both cervix and uterus; Z90.49 Acquired absence of other specified parts of digestive tract; Z95.5 Presence of coronary angioplasty implant and graft; Z79.899 Other long term (current) drug therapy; Y93.89 Activity, other specified; Y92.89 Other specified places as the place of occurrence of the external cause; Y99.8 Other external cause status
CPT/HCPCS: 10102; 62110; 62900